=== PATIENT | female | born 1980 | race Caucasian/White ===

== ENCOUNTER 2017-07-03 11:19 | Emergency (ER) | payer SELFPAY ==
[~2017-07-03] VITALS: Ht 160 cm; Wt 100.0 kg
[2017-07-03] MEDS ORDERED: ZPAK PO (12:09)
[2017-07-03] MEDS ORDERED: CORTISPORIN OTI10 M2 AS (12:09)
[2017-07-03 12:41] VITALS: BP 134/66
== END 2017-07-03 12:41 | disposition home or self-care (01) | DRG 153 ==
LOC: ED 11:19
DX: H66.92 Otitis media, unspecified, left ear (principal); J40 Bronchitis, not specified as acute or chronic; Z72.0 Tobacco use; R09.81 Nasal congestion

== ENCOUNTER 2018-07-15 11:49 | Emergency (ER) | payer MEDICAID ==
[~2018-07-15] VITALS: Ht 160 cm; Wt 97.0 kg
[~2018-07-15 11:49] MED LIST: CORTISPORIN OTI10 M2 AS; ZPAK PO
[2018-07-15 12:32] LABS: HEMOGLOBIN 11.5 g/dl (12.0-16.0); IMMATURE GRANULOCYTES 0.2 % (0.0-5.0); MEAN CELL VOLUME 89.2 fL CALC (80.0-100.0); MEAN CORPUSCULAR HGB CONC 30.3 g/L CALC (32.0-36.0); NEUT# 3.66 thou/uL (2.00-7.15); RED BLOOD COUNT 4.26 mill/uL (4.20-5.60); RED CELL DISTRI WIDTH 15.5 % (11.5-15.5); URINE BILIRUBIN - DIPSTICK NEGATIVE (NEGATIVE); URINE BLOOD DIPSTICK MODERATE (NEGATIVE); URINE COLOR YELLOW; URINE GLUCOSE - DIPSTICK NEGATIVE (NEGATIVE); URINE KETONE NEGATIVE (NEGATIVE); URINE LEUK ESTERASE NEGATIVE (NEGATIVE); URINE NITRITE - DIPSTICK NEGATIVE (Negative); URINE PH 8.5 (4.5-8.0); URINE PROTEIN - DIPSTICK NEGATIVE (NEG-TRACE)
[2018-07-15 12:40] LABS: ALKALINE PHOSPHATASE 151 u/l (38-126); ANION GAP 13 (6-22 (CALC)); BILIRUBIN, TOTAL 0.4 mg/dL (0.0-1.4); BUN 7 mg/dL (7-17); BUN/CREATININE RATIO 10 (12-20 (CALC)); CARBON DIOXIDE 28 mmol/l (22-30); CHLORIDE 102 mmol/l (95-108); CREATININE 0.7 mg/dL (0.5-1.0); GFR > 60 ML/MIN (>=60 (CALC)); GFR FOR AFR.AMER. > 60 ML/MIN (>=60 (CALC)); LIPASE 129 u/l (23-300); POTASSIUM 4.8 mmol/l (3.5-5.1); SGOT/AST 21 u/l (14-36); SODIUM 138 mmol/l (137-146); TOTAL PROTEIN 7.3 g/dL (6.3-8.2)
[2018-07-15 12:57] LABS: BETA-HCG, QUANT(RESULT NUMBER) <2 mIU/mL
[2018-07-15 15:10] VITALS: BP 121/75
== END 2018-07-15 15:20 | disposition home or self-care (01) ==
LOC: ED 11:49
PROVIDERS: Family Medicine
DX: R10.13 Epigastric pain (principal); N93.9 Abnormal uterine and vaginal bleeding, unspecified; F17.210 Nicotine dependence, cigarettes, uncomplicated; D18.03 Hemangioma of intra-abdominal structures
CPT/HCPCS: Q9967

== ENCOUNTER 2020-08-20 06:10 | Emergency (ER) | payer OTHER ==
[~2020-08-20] VITALS: Ht 160 cm; Wt 107.0 kg
[2020-08-20] MEDS ORDERED: ULTRAM50 M1 PO ×2 (06:57→06:59)
[2020-08-20 07:05] VITALS: BP 114/66
== END 2020-08-20 07:20 | disposition home or self-care (01) ==
LOC: ED 06:10
DX: S90.111A Contusion of right great toe without damage to nail, initial encounter (principal); F17.200 Nicotine dependence, unspecified, uncomplicated; W22.03XA Walked into furniture, initial encounter; Y92.009 Unspecified place in unspecified non-institutional (private) residence as the place of occurrence of the external cause

== ENCOUNTER 2021-03-04 07:20 | Emergency (ER) | payer MEDICAID ==
[~2021-03-04] VITALS: Ht 160 cm; Wt 110.5 kg
[~2021-03-04 07:20] MED LIST changes: +ULTRAM50 M1 PO
[2021-03-04] MEDS ORDERED: CEPHALEXIN500 M1 PO (07:52)
[2021-03-04 08:10] VITALS: BP 154/66
== END 2021-03-04 08:17 | disposition home or self-care (01) ==
LOC: ED 07:20
DX: T81.31XA Disruption of external operation (surgical) wound, not elsewhere classified, initial encounter (principal); E66.9 Obesity, unspecified; F17.210 Nicotine dependence, cigarettes, uncomplicated; Y83.8 Other surgical procedures as the cause of abnormal reaction of the patient, or of later complication, without mention of misadventure at the time of the procedure; Z68.41 Body mass index [BMI] 40.0-44.9, adult

== ENCOUNTER 2021-03-25 08:36 | Emergency (ER) | payer MEDICAID ==
[~2021-03-25] VITALS: Ht 160 cm; Wt 113.2 kg
[~2021-03-25 08:36] MED LIST changes: +CEPHALEXIN500 M1 PO
[2021-03-25 09:26] LABS: HEMATOCRIT 37.5 % (37.0-47.0); IMMATURE GRANULOCYTES 0.1 % (0.0-5.0); MEAN CELL VOLUME 90.6 fL CALC (80.0-100.0); NEUT# 4.94 thou/uL (2.00-7.15); RED BLOOD COUNT 4.14 mill/uL (4.20-5.60)
[2021-03-25 09:29] LABS: URINE BILIRUBIN - DIPSTICK NEGATIVE (NEGATIVE); URINE BLOOD DIPSTICK TRACE-INTACT (NEGATIVE); URINE COLOR YELLOW; URINE GLUCOSE - DIPSTICK NEGATIVE (NEGATIVE); URINE KETONE NEGATIVE (NEGATIVE); URINE LEUK ESTERASE NEGATIVE (NEGATIVE); URINE PROTEIN - DIPSTICK NEGATIVE (NEG-TRACE); URINE UROBILINOGEN - DIPSTICK 0.2 E.U./dL (0.2)
[2021-03-25 09:32] LABS: URINE NITRITE - DIPSTICK NEGATIVE (Negative)
[2021-03-25 09:43] LABS: ALKALINE PHOSPHATASE 170 u/l (38-126); ANION GAP 13 (6-22 (CALC)); BILIRUBIN, TOTAL 0.4 mg/dL (0.0-1.4); BUN 13 mg/dL (7-17); BUN/CREATININE RATIO 22 (12-20 (CALC)); CARBON DIOXIDE 24 mmol/l (22-30); CHLORIDE 105 mmol/l (95-108); CREATININE 0.6 mg/dL (0.5-1.0); GFR > 60 ML/MIN (>=60 (CALC)); GFR FOR AFR.AMER. > 60 ML/MIN (>=60 (CALC)); POTASSIUM 4.4 mmol/l (3.5-5.1); SGOT/AST 21 u/l (14-36); SODIUM 137 mmol/l (137-146); TOTAL PROTEIN 7.7 g/dL (6.3-8.2)
[2021-03-25 09:59] LABS: BETA-HCG, QUANT(RESULT NUMBER) <2 mIU/mL
[2021-03-25 10:24] VITALS: BP 134/72
== END 2021-03-25 10:24 | disposition home or self-care (01) ==
LOC: ED 08:36
PROVIDERS: Emergency Medicine
DX: R10.2 Pelvic and perineal pain (principal); F17.200 Nicotine dependence, unspecified, uncomplicated

== ENCOUNTER 2024-02-04 08:44 | Emergency (ER) | payer SELFPAY ==
[~2024-02-04] VITALS: Ht 160 cm; Wt 112.0 kg
[2024-02-04 09:05] VITALS: BP 125/81
[2024-02-04 09:10] LABS: URINE BILIRUBIN - DIPSTICK Negative (NEGATIVE); URINE BLOOD DIPSTICK Trace-intact (NEGATIVE); URINE GLUCOSE - DIPSTICK Negative (NEGATIVE); URINE KETONE Negative (NEGATIVE); URINE LEUK ESTERASE Negative (NEGATIVE); URINE NITRITE - DIPSTICK Negative (Negative); URINE PH 5.5 (4.5-8.0); URINE PROTEIN - DIPSTICK Negative (NEG-TRACE); URINE SPECIFIC GRAVITY <=1.005; URINE UROBILINOGEN - DIPSTICK 0.2 E.U./dL (0.2)
[2024-02-04 09:14] LABS: URINE COLOR Straw
[2024-02-04] MEDS ORDERED: METRONIDAZOLE500 MG PO (10:10)
[2024-02-04] MEDS ORDERED: DOXYCYCLINE100 MG PO (10:10)
[2024-02-04] MEDS ORDERED: DIFLUCAN150 MG PO (10:10)
[2024-02-04 10:20] VITALS: BP 126/79
[2024-02-04 10:25] VITALS: BP 126/79
== END 2024-02-04 10:16 | disposition home or self-care (01) | DRG 759 ==
LOC: ED 08:44
PROVIDERS: Family Medicine
DX: N76.0 Acute vaginitis (principal); N89.8 Other specified noninflammatory disorders of vagina; E66.9 Obesity, unspecified; F17.210 Nicotine dependence, cigarettes, uncomplicated